=== PATIENT | male | born 1980 | race Caucasian/White ===

== ENCOUNTER 2019-11-05 16:46 | Observation (INO) | payer BC ==
[2019-11-05 17:49] VITALS: BMI 28.1
--- NOTE | 2019-11-05 18:25 | RAD REPORT ---
EXAM DESCRIPTION: CT - Head Brain Wo Cont - 11/05/2019 6:17 pm CLINICAL HISTORY: syncope COMPARISON: No comparisons TECHNIQUE: Axial 5 mm thick images of the head were obtained without IV contrast. All CT scans are performed using dose optimization technique as appropriate and may include automated exposure control or mA/KV adjustment according to patient size. FINDINGS: No intracranial hemorrhage, mass, edema or shift of mid-line structures. No acute infarcti on changes seen. No abnormal extra-axial fluid collections. Ventricles are normal. Mastoid air cells and visualized portions of the paranasal sinuses are clear. No acute bony findings. IMPRESSION: Negative non-contrast CT head examination.
[2019-11-05 18:34] LABS: Absolute Lymphocytes (CBC) 1.3 K/uL (0.7-4.9); Basophils % 0.5 % (0-1.3); Hematocrit 45.2 % (39.6-49.0); Lymphocytes % 18.8 % (15.3-44.8); MPV 10.2 fL (7.6-11.3); RBC Red Blood Cell Count 4.94 M/uL (4.33-5.43)
[2019-11-05 18:54] LABS: ALT/SGPT 77 U/L (12-78); AST/SGOT 35 U/L (15-37); Albumin 4.4 g/dL (3.4-5.0); Alkaline Phosphatase 71 U/L (45-117); BUN Blood Urea Nitrogen 14 mg/dL (7-18); Bicarbonate 28 mmol/L (21-32); Bilirubin Total 0.7 mg/dL (0.2-1.0); Creatine Phosphokinase 138 U/L (39-308); Glucose Level 108 mg/dL (74-106); Protein, Total 8.2 g/dL (6.4-8.2); Sodium Level 137 mmol/L (136-145); Troponin I < 0.02 ng/mL (0.0-0.045)
--- NOTE | 2019-11-05 18:57 | RAD REPORT ---
EXAM DESCRIPTION: RAD - Chest Pa And Lat (2 Views) - 11/05/2019 6:26 pm CLINICAL HISTORY: syncope COMPARISON: None TECHNIQUE: Frontal and lateral views of the chest were obtained. FINDINGS: The lungs are underinflated. No peripheral mass or consolidation. Lung markings are not cl early outside of normal range. Heart size is normal and central vasculature is within normal limits . No pleural effusion or pneumothorax seen. No acute bony finding noted. No aortic abnormality. IMPRESSION: No acute cardiopulmonary process.
--- NOTE | 2019-11-05 22:28 | HP ---
Date of Admission: 11/05/2019 Chief Complaint: Syncope. History Of Present Illness: A 39-year-old male patient who came in the office visit. He has been maggie garnett well and does not have any complaints. No problems reported today and his recent blood work th at was done prior to this visit has shown abnormal liver function test. Compared to multiple prior b lood work results this abnormality on the liver function is something new as he has multiple prior li fermín function tests were normal. After we completed today's office visit, he was asked to get some bl ood drawn for further investigation regarding this abnormal liver function tests. So, patient was si tting in the chair and phlebotomies karol his blood work and I was in another exam rooms with another patient and office staff called me to go over the right away so soon as I entered into the room where the patient was sitting, I noted that the patient had passed out in sitting position with head leani ng forward and I started shaking him gently and calling his name and within probably 2-3 seconds the patient opened his eyes and he jerked a couple of times about 1 or 2 seconds apart and after that he was back to his normal self. When I touched him, I noted that he was extremely wet as he probably lerma d profuse sweating during this particular episode. He started on answering questions appropriately, did not have any confusion at all. Denied any chest pain, palpitation, shortness of breath, or any c omplaints. While he was sitting there, his manual blood pressure was 140/80 and he felt well enough to stand up and walk with me in exam room and I assisted him in exam room and he was assisted to lie down on exam table and once again, his manual blood pressure was 142/82. His heart rhythm was regula r. Patient had no complaints at that time. After I talked to patient, it was recommended for him to get admitted to the hospital for further evaluation of this syncope problem. He never had any such episode or problem in the past. Allergies: NO KNOWN ALLERGIES. Medications: He takes bupropion 100 mg p.o. daily, metoprolol tartrate 25 mg p.o. 2 times a day, ros uvastatin 20 mg p.o. daily in the evening. Review of Systems: Cardiovascular: As mentioned above. All other systems reviewed and negative. Past Medical History: Hypertension, mixed hyperlipidemia, anxiety, and recent problem with abnormal liver function test as detected on blood work from this month with elevated SGOT and SGPT. Past Surgical History: Thumb surgery. Family History: Father with hypertension. Mother alive and well. Social History: Negative for smoking. Use of alcohol: Drinks about 2 beers daily. Physical Examination: VITAL SIGNS: Blood pressure 131/77, pulse 71, respiratory rate 15, temperature 96.9. Weight 183.4 p ounds, height 66 inches. General: Awake, alert, oriented, not in distress. HEENT: Head atraumatic, normocephalic. Conjunctivae nonerythematous. Sclerae white. Mouth, no thr ush or edema noted. Ears/Nose, no mass, lesion, discharge noted. Neck: Supple. No JVD, lymph nodes, bruit, thyromegaly noted. Lungs: Bilateral good equal air entry. Clear to auscultation. No rhonchi. No rales. Heart: Normal heart sounds, no murmur or gallop. Abdomen: Soft, bowel sounds normal. No guarding, rigidity, tenderness, mass, hepatosplenomegaly, dis tention, or bruit noted. Extremities: No leg edema. No calf tenderness. Skin: No rash, ulcer, cellulitis. Lymphatics: No lymph node enlargement in neck, supraclavicular, infraclavicular region. Neuro: No focal neurological deficit. Chest: Unremarkable. External Genitalia: Deferred. Rectal: Deferred. Laboratory Data: White count 7, hemoglobin 15.1, platelets 184. Sodium 137, potassium 4, chloride 1 02, bicarb 28, BUN 14, creatinine 0.94, glucose 106. Hemoglobin A1c 6.1. SGOT 35, SGPT 77, alkaline phosphatase 71, total bilirubin 0.7. CPK 138, CK-MB 1, troponin less than 0.02. TSH 3.06. Chest x -ray, no acute cardiopulmonary changes. CAT scan of the head, no acute intracranial changes. Impression: 1.Syncope. 2.Mixed hyperlipidemia. 3.Hypertension. 4.Anxiety. 5.Abnormal liver function tests. Plan: Admit patient to hospital to telemetry. Patient is appropriate for observation. We will go a head and get an echo with Doppler and EKG per order, follow up on the results. Monitor patient on te lemetry for any cardiac arrhythmia. Likely reason for the patient's syncope is vasovagal syncope and all these details were discussed with him and also his was contacted and details were discussed with her on the phone as well. I will see him tomorrow morning for followup and details and plan of treatment discussed with the patient. BHANU Voice ID: [id number]
[2019-11-06 06:42] LABS: CKMB Creatine Kinase MB < 1.0 ng/mL (0.3-3.6); Creatine Phosphokinase 105 U/L (39-308); Troponin I < 0.02 ng/mL (0.0-0.045)
--- NOTE | 2019-11-06 08:31 | RAD REPORT ---
EXAM DESCRIPTION: US - Abdomen Exam Complete - 11/06/2019 8:23 am CLINICAL HISTORY: abn LFTs COMPARISON: No comparisons FINDINGS: Gallbladder size is normal. No gallstones, wall thickening or pericholecystic fluid. Commo n bile duct is normal with no common duct stone identified. The liver is 15 cm in the spleen measures 9.5 cm. A prominent, echogenic liver parenchymal pattern is seen with poor sonographic penetrance. This is a pattern typical for prominent fatty infiltration. T he poor sonographic penetrance decreases sensitivity for liver lesion detection. No focal lesions are seen. No portal vein abnormality. There are no focal splenic lesions. The pancreas is normal. No hydronephrosis or suspicious mass in either kidney. Aorta and IVC show no significant finding. No ascites or bulky lymphadenopathy. IMPRESSION: Diffuse fatty infiltration of a normal size liver. No liver lesions seen though sensitiv ity is decreased with this severity of fatty infiltration. No other significant findings on this study.
--- NOTE | 2019-11-06 08:34 | RAD REPORT ---
EXAM DESCRIPTION: US - CP - 11/06/2019 8:23 am CLINICAL HISTORY: syncope COMPARISON: No comparisons TECHNIQUE: Real-time sonographic evaluation of bilateral carotid and vertebral systems was performed . Ross scale and Doppler interrogation were performed with waveform tracing bilaterally. FINDINGS: Normal high resistance waveforms are noted in both external carotid arteries. The common c arotid arteries and internal carotid arteries show normal low resistance waveforms. No significant plaque formation is seen. Peak systolic and end diastolic velocity values and the ICA/ CCA ratios are in the non-hemodynamically significant range. Antegrade flow seen in both vertebral arteries. Velocity values and ratios were recorded and are retained in the patient's imaging records. IMPRESSION: No significant atherosclerotic changes noted. No evidence of a hemodynamically significant stenosis.
[2019-11-06 12:22] VITALS: BP 127/75; TEMP 98
[2019-11-06 12:39] VITALS: O2SAT 100
--- NOTE | 2019-11-07 08:52 | ECHO ---
HEIGHT: 5 ft 7 in WEIGHT: 180 lb 0 oz DATE OF STUDY: 11/06/[address]: Jefe Esparza MD 2-DIMENSIONAL: YES M.MODE: YES DOPPLER: YES COLOR FLOW: YES TDS: PORTABLE: DEFINITY: BUBBLE STUDY: DIAGNOSIS: SYNCOPE CARDIAC HISTORY: CATHERIZATION: NO SURGERY: NO PROSTHETIC VALVE: NO PACEMAKER: NO MEASUREMENTS (cm) DIASTOLIC (NORMALS) SYSTOLIC (NORMALS) IVSd 1.1 (0.6-1.2) LA Diam 3.5 (1.9-4.0) LVEF 62% LVIDd 3.5 (3.5-5.7) LVIDs 2.3 (2.0-3.5) %FS 33% LVPWd 1.2 (0.6-1.2) Ao Diam 3.2 (2.0-3.7) 2 DIMENSIONAL ASSESSMENT: RIGHT ATRIUM: NORMAL LEFT ATRIUM: NORMAL RIGHT VENTRICLE: NORMAL LEFT VENTRICLE: NORMAL TRICUSPID VALVE: NORMAL MITRAL VALVE: NORMAL PULMONIC VALVE: NORMAL AORTIC VALVE: NORMAL PERICARDIAL EFFUSION: NONE AORTIC ROOT: NORMAL LEFT VENTRICULAR WALL MOTION: NORMAL DOPPLER/COLOR FLOW: MILD TRICUSPID REGURGITATION. COMMENTS: MILD TRICUSPID REGURGITATION. NORMAL RIGHT VENTRICULAR SYSTOLIC PRESSURE. NO WALL MOTION ABNORMALITY. NO EFFUSION. NORMAL LEFT VENTRICULAR SIZE AND FUNCTION. TECHNOLOGIST: DAVID SHANNON
--- NOTE | 2019-11-07 23:06 | DS ---
Date of Discharge: 11/06/2019 Disposition: Discharged to go home. Physical Examination: HEENT: Unremarkable. Lungs: Clear to auscultation. Cardiac: Heart sounds normal. Abdomen: Soft, bowel sounds normal. No guarding, rigidity, tenderness, or distention. Extremities: No leg edema. Discharge Medications And Instructions: Continue all prior home medications. Laboratory Data: Reviewed. Hospital Course: 39-year-old male patient who was admitted to the hospital with syncope. Please see dictated H and P for more information. After patient was admitted to the hospital, routine labs wer e done, which came back unremarkable. Cardiac enzymes were negative. Chest x-ray was unremarkable. Patient had a carotid Doppler which was negative for any hemodynamically significant stenotic lesion . Echocardiogram done, result pending. CAT scan of the head was negative for any acute intracranial changes. Abdominal ultrasound showed evidence of fatty liver disease, otherwise no other acute rocha ges. Patient remained in sinus rhythm on telemetry. No cardiac arrhythmia noted. Overall, his cond ition was stable and he was discharged to go home in stable condition with negative workup. We belie ve that his cause of syncope was vasovagal episode. I have advised him to drink adequate amount of w ater, 50-60 ounce of water on a day-to-day basis and also he was advised that in the future whenever he gets any blood drawn or if he gets any injection like immunization, he should request to be in sup ine position during such procedure and he should keep himself well hydrated before such blood draw in jection and he should change position slowly like after for example after blood draw. He should stay in supine position for 2-3 minutes and start moving his hands and legs and then sit up for 2-3 minut es and keep moving hands and leg and then stand up with some assistance standby and once is stable en ough without any symptoms then no need for any further intervention at that time and all these option s were given to them. Final Diagnoses: 1.Syncope, vasovagal. 2.Hypertension. 3.Mixed hyperlipidemia. 4.Fatty liver disease. 5.Anxiety. Follow up at my office as per scheduled appointment. FARTUN/MODL Voice ID: [id number] Report ID: [id number]
== END 2019-11-06 14:09 | disposition home or self-care (01) ==
LOC: 2ND 16:46
PROVIDERS: ADMIT Internal Medicine; ATTEND Internal Medicine
DX: R55 Syncope and collapse (principal); E78.2 Mixed hyperlipidemia; I10 Essential (primary) hypertension; K76.0 Fatty (change of) liver, not elsewhere classified; F41.9 Anxiety disorder, unspecified; Z11.59 Encounter for screening for other viral diseases; I07.1 Rheumatic tricuspid insufficiency; Z79.899 Other long term (current) drug therapy
CPT/HCPCS: 93005; 93306; 85025; 36415 ×2; 82550 ×2; 84443; 83036; 84484 ×2; 82553 ×2; 80053; 70450; 71046; 93880; 76700; U0002; G0379; G0378 ×3